=== PATIENT | male | born 1960 | race Caucasian/White ===

== ENCOUNTER 2019-12-22 09:15 | Emergency (ER) | payer OTHER, BC ==
[~2019-12-22] VITALS: Ht 182.9 cm; Wt 167.8 kg
[~2019-12-22 09:15] MED LIST: HYDR1TAB94 PO; Naproxen375 MG PO; Percocet 5-3251 EACH PO; Prinivil10 MG PO; TRIA50 PO; Zoloft100 MG PO
[2019-12-22] MEDS ORDERED: KEFLEX500 MG PO (10:21)
== END 2019-12-22 10:32 | disposition home or self-care (01) ==
LOC: ER 09:15
DX: T85.628A Displacement of other specified internal prosthetic devices, implants and grafts, initial encounter (principal); I10 Essential (primary) hypertension; Z98.890 Other specified postprocedural states; Z88.8 Allergy status to other drugs, medicaments and biological substances; Z79.899 Other long term (current) drug therapy
CPT/HCPCS: 99282

== ENCOUNTER 2020-06-13 09:30 | Day surgery (SDC) | payer BC ==
[~2020-06-13] VITALS: Ht 182.9 cm; Wt 166.6 kg
[~2020-06-13 09:30] MED LIST changes: +DICL75ER PO; +Dyazide 37.5-21 EACH PO; +HYDHCL25 PO; +KEFLEX500 MG PO; +NAPR500 PO
--- NOTE | 2020-06-13 10:25 | NUR ---
Ambulatory in Day SurgeryPatient states colon prep results clear. History, Chart, Medications and Allergies reviewed before start of procedure.Lungs clear T/O to Auscultation. Patient confirms NPO status and agrees with scheduled surgery. Pre-Op teaching done. Pt verbalizes understanding. Patient States Post-Procedure ride home has been arranged.
--- NOTE | 2020-06-13 10:46 | NUR ---
06/13/20 1046 [place] Patient to ENDO 1. History, Chart, Medications and Allergies reviewed before start of procedure. See Anesthesia record PER DR. GARCIA
--- NOTE | 2020-06-13 11:28 | NUR ---
RECIEVED PT IN STEP. RECIEVED REPORT FROM ENDO ROOM 1.
--- NOTE | 2020-06-13 11:54 | NUR ---
Discharge instructions reviewed with patient. Patient verbalizes understanding. Copy given to patient to take home. PT'S QUESTIONS ANSWERED. Patient States Post-Procedure ride home has been arranged. Discharged via wheelchair to private car for ride home WITH SPOUSE.
== END 2020-06-13 11:55 | disposition home or self-care (01) ==
LOC: ORSCMMR 09:30 → ORD 11:00 → ORSCMMR 11:00
DX: Z12.11 Encounter for screening for malignant neoplasm of colon (principal); K63.5 Polyp of colon; D12.0 Benign neoplasm of cecum; D12.4 Benign neoplasm of descending colon; I10 Essential (primary) hypertension; G47.33 Obstructive sleep apnea (adult) (pediatric); K62.89 Other specified diseases of anus and rectum; K64.8 Other hemorrhoids; E66.01 Morbid (severe) obesity due to excess calories; Z68.42 Body mass index [BMI] 45.0-49.9, adult; Z79.899 Other long term (current) drug therapy
CPT/HCPCS: 88305; J2250; J2405; J2704; J3010; J7120

== ENCOUNTER → 2020-09-02 | Outpatient (CLI) | payer BC | LOC: LAB 08:21 → LAB SHORT 08:21 | DX: D48.5 Neoplasm of uncertain behavior of skin (principal) | CPT/HCPCS: 88305 ==

== ENCOUNTER → 2023-03-22 | Outpatient (CLI) | payer BC ==
[2023-03-22 18:54] LABS: Adenovirus F 40/41 Not Detected (NOT DETECT); Astrovirus Detected (NOT DETECT); Campylobacter Sp Not Detected (NOT DETECT); Cryptosporidium Not Detected (NOT DETECT); Cyclospora Cayetanensis Not Detected (NOT DETECT); E. Coli O157 Not Detected (NOT DETECT); Entamoeba Histolytica Not Detected (NOT DETECT); Enteroaggregative E. coli-EAEC Not Detected (NOT DETECT); Enteropathogenic E. coli-EPEC Not Detected (NOT DETECT); Enterotoxigenic E. coli-ETEC Not Detected (NOT DETECT); Giardia Lamblia Not Detected (NOT DETECT); Norovirus GI/GII Not Detected (NOT DETECT); Plesiomonas Shigelloides Not Detected (NOT DETECT); Rotavirus A Not Detected (NOT DETECT); Salmonella Sp Not Detected (NOT DETECT); Sapovirus Not Detected (NOT DETECT); Shiga Toxin-prod E. coli-STEC Not Detected (NOT DETECT); Shigella/Enteroin E. coli-EIEC Not Detected (NOT DETECT); Vibrio Cholerae Not Detected (NOT DETECT); Vibrio Sp Not Detected (NOT DETECT); Yersinia Enterocolitica Not Detected (NOT DETECT)
== END | disposition home or self-care (01) ==
LOC: LAB 11:15 → LAB SHORT 11:15
PROVIDERS: Physician Assistant
DX: R19.7 Diarrhea, unspecified (principal)
CPT/HCPCS: 87507

== ENCOUNTER 2024-07-29 17:05 | Emergency (ER) | payer SELFPAY ==
[~2024-07-29] VITALS: Ht 180.3 cm; Wt 158.8 kg
[2024-07-29 17:32] LABS: BASOPHILS ABSOLUTE AUTO 0.07 K/mm3 (0.00-0.23); BASOPHILS PERCENT AUTO 0 % (0-2); EOSINOPHILS ABSOLUTE AUTO 0.12 K/mm3 (0.00-0.68); EOSINOPHILS PERCENT AUTO 1 % (0-6); Hematocrit 44.2 % (37.0-53.0); Hemoglobin 14.5 g/dL (13.5-17.5); IMMATURE GRAN ABSOLUTE AUTO 0.08 K/mm3 (0.00-0.10); IMMATURE GRAN PERCENT AUTO 0 % (0-1); LYMPHOCYTES ABSOLUTE AUTO 3.09 K/mm3 (0.84-5.20); LYMPHOCYTES PERCENT AUTO 15 % (21-46); MONOCYTES ABSOLUTE AUTO 1.88 K/mm3 (0.16-1.47); MONOCYTES PERCENT AUTO 9 % (4-13); Mean Corpuscular HGB 25.8 pg (26.0-34.0); Mean Corpuscular HGB Conc 32.8 g/dL (31.5-36.5); Mean Corpuscular Volume 79 fL (80-100); Mean Platelet Volume 10.2 fL (9.1-12.4); NEUTROPHILS ABSOLUTE AUTO 15.31 K/mm3 (1.96-9.15); NEUTROPHILS PERCENT AUTO 75 % (41-73); Platelet Count 263 K/mm3 (150-400); RDW Coefficient Variation 13.7 % (11.7-14.2); RDW Standard Deviation 39.1 fL (35.1-46.3); Red Blood Cell Count 5.62 M/mm3 (4.30-5.90); White Blood Cell Count 20.55 K/mm3 (4.00-11.30)
[2024-07-29 17:50] LABS: Albumin, Blood 3.4 g/dL (3.4-5.0); Albumin/Globulin Ratio 0.9 (0.8-1.8); Bilirubin, Total 0.7 mg/dL (0.1-1.0); Bun/Creatinine Ratio 21.2 (12.0-20.0); Calcium, Blood 9.4 mg/dL (8.5-10.1); Creatinine, Blood 1.13 mg/dL (0.60-1.20); Globulin, Blood 3.7 g/dL (2.2-4.0); Potassium, Blood 3.9 mmol/L (3.5-5.5); Total Protein, Blood 7.1 g/dL (6.4-8.2)
[2024-07-29] MEDS ORDERED: Ondansetron HCl 2 MG / ML 2ML Vial IV ONE ×2 (18:00→20:00)
[2024-07-29] MEDS ORDERED: HYDROcodone 10-APAP 325 TAB PO ONE ×2 (18:00→22:00)
[2024-07-29] MEDS ORDERED: Piperacillin/Tazobactam Sod 4.5 GM in NS 100 ML IV ONE (20:00)
[2024-07-29] MEDS ORDERED: NS 1,000 ML IV SCH (20:00)
[2024-07-29] MEDS ORDERED: FentaNYL Citrate 50 MCG/ML 2 ML Injection IV ONE (22:15)
[2024-07-29] MEDS ORDERED: RX Prepack 6 Tabs Oxycodone 5mg UD ONE (23:20)
[2024-07-29] MEDS ORDERED: HYDACE10B PO (23:21)
[2024-07-29] MEDS ORDERED: AMOCLA875 PO (23:21)
[2024-07-29 23:52] VITALS: BP 109/71
== END 2024-07-29 23:52 | disposition home or self-care (01) ==
LOC: ER 17:05
PROVIDERS: Student in an Organized Health Care Education/Training Program
DX: K61.0 Anal abscess (principal); K62.89 Other specified diseases of anus and rectum; I10 Essential (primary) hypertension; Z88.8 Allergy status to other drugs, medicaments and biological substances; Z79.899 Other long term (current) drug therapy
CPT/HCPCS: 36415; 46050; 72193; 80053; 83605; 83690; 85025; 96365-59; 96375-59; 99284-25; A9270; J2405; J2543; J3010; J7030; Q9967